=== PATIENT | female | born 1995 | race Caucasian/White ===

== ENCOUNTER → 2021-01-01 | Outpatient (CLI) | payer BC | LOC: LAB 07:06 | DX: R94.6 Abnormal results of thyroid function studies (principal) | CPT/HCPCS: 84436; 84439; 84443; 84481 ==

== ENCOUNTER → 2021-01-24 | Outpatient (CLI) | payer BC | LOC: NM 08:40 | DX: R94.6 Abnormal results of thyroid function studies (principal) | CPT/HCPCS: 78012; A9516 ==

== ENCOUNTER → 2021-03-09 | Outpatient (CLI) | payer BC | LOC: LAB 13:28 | DX: E05.90 Thyrotoxicosis, unspecified without thyrotoxic crisis or storm (principal) | CPT/HCPCS: 36415; 84439; 84443; 84481 ==

== ENCOUNTER → 2021-06-01 | Outpatient (CLI) | payer BC ==
[2021-06-02 08:14] LABS: TSH 5.78 uIU/mL (0.450-4.500)
== END ==
LOC: LAB 07:14
PROVIDERS: Internal Medicine Endocrinology, Diabetes & Metabolism
DX: E05.90 Thyrotoxicosis, unspecified without thyrotoxic crisis or storm (principal)
CPT/HCPCS: 36415; 84439; 84443; 84480

== ENCOUNTER → 2021-06-29 | Outpatient (CLI) | payer BC | LOC: EXRD 07:59 | DX: R19.7 Diarrhea, unspecified (principal); R11.0 Nausea; R10.13 Epigastric pain | CPT/HCPCS: 76705 ==

== ENCOUNTER → 2021-07-14 | Outpatient (CLI) | payer BC | LOC: LAB 14:11 | DX: E05.90 Thyrotoxicosis, unspecified without thyrotoxic crisis or storm (principal) | CPT/HCPCS: 36415; 84445 ==

== ENCOUNTER → 2021-08-01 | Outpatient (CLI) | payer BC | LOC: LAB 10:49 | DX: E05.90 Thyrotoxicosis, unspecified without thyrotoxic crisis or storm (principal) | CPT/HCPCS: 36415; 84439; 84443; 84481 ==

== ENCOUNTER → 2021-09-16 | Outpatient (CLI) | payer BC | LOC: LAB 07:08 | DX: E05.90 Thyrotoxicosis, unspecified without thyrotoxic crisis or storm (principal) | CPT/HCPCS: 36415; 84439; 84443 ==